=== PATIENT | male | born 2000 | race African-American/Black ===

== ENCOUNTER 2020-08-30 10:41 | Emergency (ER) | payer SELFPAY ==
[~2020-08-30] VITALS: Ht 182.9 cm; Wt 65.8 kg
[2020-08-30 10:43] VITALS: BP 137/77; Ht 182.9 cm; Wt 65.8 kg
[2020-08-30 13:07] LABS: BASOPHIL % 0.5 % (0-2); PLATELET COUNT 252 x10^3mcL (130-400); RED CELL DISTRIBUTION WIDTH 12.1 % (11.5-14.5)
[2020-08-30 13:42] LABS: CALCIUM 9.6 mg/dL (8.5-10.1); CARBON DIOXIDE 31.5 mmol/L (21-32); CHLORIDE SERUM 102 mmol/L (98-107); GFR1 > 60 mL/min; GLUCOSE SERUM 95 mg/dL (74-106); POTASSIUM SERUM 4.2 mmol/L (3.5-5.1); SODIUM SERUM 138 mmol/L (136-145)
[2020-08-30 13:47] LABS: ALBUMIN 4.2 g/dL (3.4-5.0); ALKALINE PHOSPHATASE 102 U/L (46-116); ALT/SGPT 28 U/L (16-63); AST/SGOT 26 U/L (15-37); BILIRUBIN TOTAL 0.65 mg/dL (0.20-1.00); TOTAL PROTEIN, SERUM 7.9 g/dL (6.4-8.2)
== END 2020-08-30 14:04 | disposition home or self-care (01) ==
LOC: ED 10:41
PROVIDERS: Emergency Medicine
DX: U07.1 COVID-19 (principal); R04.0 Epistaxis
CPT/HCPCS: U0003